=== PATIENT | female | born 1960 | race Two or more races ===

== ENCOUNTER 2022-11-14 20:43 | Emergency (ER) | payer OTHER ==
[~2022-11-14] VITALS: Ht 147.3 cm; Wt 71.8 kg
[2022-11-14 20:45] VITALS: TEMP 98.6
[2022-11-14] MEDS ORDERED: KETOROLAC TROMETHAMINE 30 MG/ML VIAL IM ONE (21:30)
[2022-11-14] MEDS ORDERED: ACETAMINOPHEN 500 MG TABLET PO ONE (21:30)
[2022-11-14 23:05] VITALS: BP 148/84; PULSE 84; RESP 16
== END 2022-11-14 23:05 | disposition home or self-care (01) ==
LOC: EMS 20:43
DX: S83.91XA Sprain of unspecified site of right knee, initial encounter (principal); X58.XXXA Exposure to other specified factors, initial encounter; Y93.89 Activity, other specified; Y92.89 Other specified places as the place of occurrence of the external cause; Y99.8 Other external cause status
CPT/HCPCS: 99283; 29505; 73562; 96372; J1885